=== PATIENT | male | born 1980 | race African-American/Black ===

== ENCOUNTER 2021-07-27 08:27 | Emergency (ER) | payer MEDICAID ==
[2021-07-27 09:04] LABS: BASOPHILS # (AUTO) 0.1 10^3/uL (0.0-0.1); BASOPHILS % (AUTO) 0.9 %; EOSINOPHILS # (AUTO) 0.3 10^3/uL (0.0-0.7); EOSINOPHILS % (AUTO) 3.3 %; HCT - HEMATOCRIT 44.7 % (42.0-52.0); HGB - HEMOGLOBIN 15.5 g/dL (14.0-18.0); MEAN CORPUSCULAR HEMOGLOBIN 26.6 pg (27.0-31.0); MEAN CORPUSCULAR HGB CONC 34.7 g/dL (32.0-36.0); MEAN CORPUSCULAR VOLUME 76.8 fL (80.0-94.0); MEAN PLATELET VOLUME 9.9 fL (7.4-11.4); MONOCYTES # (AUTO) 0.7 10^3/uL (0.0-1.0); MONOCYTES % (AUTO) 6.6 %; NEUTROPHILS # (AUTO) 7.2 10^3/uL (1.5-6.6); NEUTROPHILS % (AUTO) 69.9 %; PLT - PLATELET COUNT 239 10^3/uL (130-450); RED BLOOD COUNT 5.82 10^6/uL (4.70-6.10); RED CELL DISTRIBUTION WIDTH 13.5 % (12.0-15.0); WHITE BLOOD COUNT 10.3 x10^3/uL (4.8-10.8)
[2021-07-27 09:05] LABS: BILIRUBIN,URINE NEGATIVE (NEGATIVE); GLUCOSE, URINE (UA) NEGATIVE (NEGATIVE); KETONES,URINE (UA) NEGATIVE (NEGATIVE); LEUKOCYTE ESTERASE, URINE NEGATIVE (NEGATIVE); NITRITE,URINE NEGATIVE (NEGATIVE); OCCULT BLOOD,URINE NEGATIVE (NEGATIVE); PROTEIN,URINE NEGATIVE (NEGATIVE); UROBILINOGEN,URINE 0.2 (NORMAL) E.U./dL (NORMAL)
[2021-07-27 09:06] LABS: CLARITY,URINE CLEAR (CLEAR)
--- NOTE | 2021-07-27 09:13 | ED Physician Documentation ---
PD HPI ABD PAIN - Stated complaint Stated Complaint: STOMACK PX, FEVER - Chief complaint Chief Complaint: Abd Pain - History obtained from History obtained from: Patient - History of Present Illness Timing - onset: How many days ago (3) Timing - duration: Days (3) Timing - details: Gradual onset, Still present Quality: Cramping, Sharp, Pain Location: Periumbilical, Suprapubic, LLQ Improved by: Laying still Worsened by: Moving, Position, Palpation Associated symptoms: Nausea, Vomiting, Diarrhea Similar symptoms before: Has not had sx before Recently seen: Not recently seen - Additional information Additional information: Previously well 41-year-old male has developed nausea vomiting and diarrhea about 3 days ago. He has now developed severe abdominal pain in the suprapubic and periumbilical area that is worse in the left lower quadrant. He continues to have nausea he states that he feels like his stomach is just not able to settle at all. He has not had the symptoms previously has never had surgery to his abdomen he is otherwise been healthy. Patient does use cannabis regularly. He has been getting relief from a hot shower or bath Review of Systems Constitutional: reports: Fever, Myalgias Eyes: denies: Decreased vision Ears: denies: Ear pain Nose: denies: Rhinorrhea / runny nose, Congestion Throat: denies: Sore throat Cardiac: denies: Chest pain / pressure, Palpitations Respiratory: denies: Dyspnea, Cough GI: reports: Abdominal Pain, Nausea, Vomiting, Diarrhea : denies: Dysuria, Frequency Skin: denies: Rash Musculoskeletal: denies: Neck pain, Back pain, Extremity pain Neurologic: reports: Generalized weakness. denies: Focal weakness, Numbness PD PAST MEDICAL HISTORY - Past Medical History Past Medical History: No Cardiovascular: None Respiratory: None Neuro: None Endocrine/Autoimmune: None GI: None : None HEENT: None Psych: None Musculoskeletal: None Derm: None - Past Surgical History Past Surgical History: No - Present Medications Home Medications: Ambulatory Orders Medication Instructions Recorded Confirmed Ondansetron Odt [Zofran] 4 mg TL Q6H PRN #10 tablet 07/27/21 Sulfamethox/Trimeth 800/160 1 each PO BID #10 tablet 07/27/21 [Bactrim Ds] - Allergies Allergies/Adverse Reactions: Allergies Allergy/AdvReac Type Severity Reaction Status Date / Time No Known Drug Allergies Allergy Verified 07/27/21 08:38 - Social History Does the pt smoke?: No Smoking Status: Never smoker Does the pt drink ETOH?: Yes Does the pt have substance abuse?: No - Immunizations Immunizations are current?: Yes PD ED PE NORMAL - Vitals Vital signs reviewed: Yes (hypertensive ) - General General: Alert and oriented X 3, Well developed/nourished, Other (appears withdrawn ) - HEENT HEENT: Atraumatic, PERRL, EOMI, Other (dry mucous membranes) - Neck Neck: Supple, no meningeal sign, No bony TTP - Cardiac Cardiac: RRR, No murmur - Respiratory Respiratory: No respiratory distress, Clear bilaterally - Abdomen Abdomen: Normal bowel sounds, Soft, Non distended, No organomegaly, Other (mild general tenderness worse on the left no garding or rebound ) - Back Back: No CVA TTP, No spinal TTP - Derm Derm: Normal color, Warm and dry, No rash - Extremities Extremities: No deformity, No edema - Neuro Neuro: Alert and oriented X 3, registered nurse bone marrow transplant 2-12 intact, No motor deficit, No sensory deficit, Normal speech Eye Opening: Spontaneous Motor: Obeys Commands Verbal: Oriented GCS Score: 15 - Psych Psych: Normal mood, Normal affect Results - Vitals Vitals: Vital Signs - 24 hr 07/27/21 07/27/21 07/27/21 08:32 09:01 11:00 Temperature 36.6 C Heart Rate 66 54 L 55 L Respiratory 22 20 19 Rate Blood Pressure 178/108 H 189/115 H 198/98 H O2 Saturation 99 98 98 Oxygen O2 Source Room air - Labs Labs: Laboratory Tests 07/27/21 07/27/21 07/27/21 08:50 08:50 08:55 WBC 10.3 RBC 5.82 Hgb 15.5 Hct 44.7 MCV 76.8 L MCH 26.6 L MCHC 34.7 RDW 13.5 Plt Count 239 MPV 9.9 Neut # (Auto) 7.2 H Lymph # (Auto) 2.0 [place] # (Auto) 0.7 Eos # (Auto) 0.3 Baso # (Auto) 0.1 Absolute Nucleated RBC 0.00 Nucleated RBC % 0.0 Sodium 137 Potassium 3.3 L Chloride 99 L Carbon Dioxide 26 Anion Gap 12.0 BUN 11 Creatinine 1.2 Estimated GFR (MDRD) 66 L Glucose 125 H Calcium 9.3 Total Bilirubin 1.3 H AST 20 ALT 22 Alkaline Phosphatase 50 Total Protein 7.1 Albumin 4.3 Globulin 2.8 Albumin/Globulin Ratio 1.5 Lipase 33 Urine Color LT. YELLOW Urine Clarity CLEAR Urine pH 8.0 H Ur Specific [place] 1.020 Urine Protein NEGATIVE Urine Glucose (UA) NEGATIVE Urine Ketones NEGATIVE Urine Occult Blood NEGATIVE Urine Nitrite NEGATIVE Urine Bilirubin NEGATIVE Urine Urobilinogen 0.2 (NORMAL) Ur Leukocyte Esterase NEGATIVE Ur Microscopic Review NOT INDICATED Urine Culture Comments NOT INDICATED - Rads (name of study) Ct ab/pel Radiology: Prelim report reviewed (Impression: 1. Mild segmental wall thickening of the transverse descending and sigmoid colon compatible with a mild infectious or inflammatory colitis. Colonic diverticulosis without diverticulitis. ), EMP read indepedently, See rad report PD MEDICAL DECISION MAKING - ED course Complexity details: reviewed results, re-evaluated patient, considered differential, d/w patient ED course: 41-year-old male who uses cannabis regularly has developed acute abdominal pain accompanied by nausea vomiting and diarrhea. He presents to the emergency department today after 3 days of symptoms not been able to eat or drink anything and feels very dehydrated. He has uncontrolled nausea and feels he has a pain throughout his stomach that is burning and knotting in nature.He does not have prior history of cannabis hyperemesis and he does not have prior history of inflammatory bowel disease. He does think he gets some relief from a hot shower or bath. Here in the emergency department an IV is begun is given 2 mg of Haldol 25 mg of Benadryl and a liter of saline. He has some improvement in his symptoms but continues to have nausea. He is administered Zofran. After results of his CT demonstrate colitis we are placing the patient on empiric antibiotic as well.He is given a single dose of decadron in the ED. Uncertain if this is a primary presentation of cannabis hyperemesis or primarily colitis found on CT. Departure - Departure Disposition: 01 Home, Self Care Clinical Impression: Colitis Condition: Stable Instructions: ED Gastroenteritis Bacterial Follow-Up: [facility] [Provider Group] Prescriptions: Sulfamethox/Trimeth 800/160 [Bactrim Ds] 1 each PO BID #10 tablet Ondansetron Odt [Zofran] 4 mg TL Q6H PRN #10 tablet PRN Reason: Nausea / Vomiting Comments: Abdi, Today it looks like you have some "colitis" on your CT scan. This is usually inflammation or infection in the Large intestine. We have given you a dose of "emperic antibiotic" (meaning we don't know for sure what organism we are treating but we are treating with what has worked in this situation for others). We talked briefly about cannabis hyperemesis or an excessive vomiting that happens to some people with excessive cannabis use. The disorder is usually accompanied by abdominal pain and patient's frequently get relief with a warm bath or hot shower. The nausea from this can be difficult to treat and we gave you an antidote for this today. My recommendation is to refrain from cannabis now and if you have this happens to you again when you restart consider this as a possible cause.
[2021-07-27 09:18] LABS: ALBUMIN 4.3 g/dL (3.2-5.5); ALBUMIN/GLOBULIN RATIO 1.5 (1.0-2.2); BILIRUBIN,TOTAL 1.3 mg/dL (0.2-1.0); CALCIUM 9.3 mg/dL (8.5-10.3); CREATININE 1.2 mg/dL (0.6-1.2); POTASSIUM 3.3 mmol/L (3.5-5.0); TOTAL PROTEIN 7.1 g/dL (6.7-8.2)
[2021-07-27] MEDS: diphenhydrAMINE INJ 50 MG/ML VIAL IVP STA (09:47)
[2021-07-27] MEDS ORDERED: IOPAMIDOL-300 100 ML VIAL ONE (09:47)
[2021-07-27] MEDS: HALOPERIDOL 5 MG/ML VIAL IVP ONE (09:47)
[2021-07-27] MEDS: SODIUM CHLORIDE 0.9% 1,000 ML IV STA ×2 (09:47→13:19)
[2021-07-27] MEDS: MORPHINE 2 MG/ML CARPUJECT IVP STA (09:47)
[2021-07-27] MEDS: IOPAMIDOL-300 100 ML VIAL IVP ONE (10:21)
--- NOTE | 2021-07-27 10:41 | CT Report ---
PROCEDURE: Abdomen/Pelvis W INDICATIONS: suprapubic and LLQ pain CONTRAST: IV CONTRAST: Isovue 300 ml: 100 PO CONTRAST: *NO PO CONTRAST TECHNIQUE: After the administration of intravenous contrast, 5 mm thick sections acquired from the diaphragms to the symphysis. 5 mm thick coronal and sagittal reformats were acquired. For radiation dose reducti on, the following was used: automated exposure control, adjustment of mA and/or kV according to selvin ent size. COMPARISON: None. FINDINGS: Image quality: Excellent. ABDOMEN: Lung bases: There is mild dependent atelectasis in the right lower lobe. Heart size is normal. There is a small hiatal hernia. Solid organs: There is mild focal fatty infiltration in the anterior left hepatic lobe. Gallbladder appears within normal limits without calcified gallstones. Biliary system is non dilated. Pancreas e nhances normally. No adrenal nodules. Kidneys demonstrate normal size and enhancement, without hydr onephrosis. Peritoneum and bowel: Small bowel loops demonstrate normal wall thickness and caliber. The appendix i s normal in appearance. There is mild segmental wall thickening No free fluid or air. Nodes and vessels: No retroperitoneal or mesenteric adenopathy by size criteria. Aorta and inferior vena cava are normal in size of the transverse, descending, and sigmoid colon suggestive of a mild c olitis. There is colonic diverticulosis without acute diverticulitis.. Miscellaneous: No ventral hernias. PELVIS: Genitourinary: Bladder wall thickness is normal. Miscellaneous: No inguinal hernias or adenopathy. Bones: No suspicious bony lesions. No vertebral body compression fractures. IMPRESSION: 1. Mild segmental wall thickening of the transverse, descending, and sigmoid colon compatible with a mild infectious or inflammatory colitis. 2. Colonic diverticulosis without acute diverticulitis. Reviewed by: Ed Velasco MD on 07/27/2021 10:39 AM [facility] Approved by: Ed Velasco MD on 07/27/2021 10:39 AM PST Station ID: [id number]
[2021-07-27] MEDS: ONDANSETRON 4 MG/2 ML VIAL IVP STA (12:56)
[2021-07-27] MEDS: DEXAMETHASONE 10 MG/ML VIAL IVP STA (13:14)
[2021-07-27] MEDS: CIPROFLOXACIN 400 MG/200 ML 400 MG/200 ML BAG IV STA (13:18)
[2021-07-27 14:37] VITALS: BP 129/89
== END 2021-07-27 14:37 | disposition home or self-care (01) ==
LOC: ED 08:27
DX: K52.9 Noninfective gastroenteritis and colitis, unspecified (principal); K57.30 Diverticulosis of large intestine without perforation or abscess without bleeding
CPT/HCPCS: 36415; 74177; 80053; 81003; 83690; 85025; 96365; 96375; 99284; 99285; J1200; Q9967; 81001; 87086

== ENCOUNTER 2022-01-03 16:20 | Outpatient (CLI) | payer MEDICAID | END 2022-01-03 16:21 | disposition left against medical advice (07) | LOC: EMS 16:20 | DX: S91.311A Laceration without foreign body, right foot, initial encounter (principal); Y04.8XXA Assault by other bodily force, initial encounter ==

== ENCOUNTER 2022-05-12 07:11 | Emergency (ER) | payer MEDICAID ==
--- NOTE | 2022-05-12 08:06 | XRAY Report ---
PROCEDURE: Chest 1 View X-Ray INDICATIONS: cough TECHNIQUE: One view of the chest was acquired. COMPARISON: None FINDINGS: Surgical changes and devices: None. Lungs and pleura: No pleural effusions or pneumothorax. Lungs are clear. Mediastinum: Mediastinal contours appear normal. Heart size is normal. Bones and chest wall: No suspicious bony lesions. Overlying soft tissues appear unremarkable. IMPRESSION: No acute pulmonary process. Reviewed by: Ynes Solorio MD on 05/12/2022 8:04 AM PDT Approved by: Ynes Solorio MD on 05/12/2022 8:04 AM PDT Station ID: [id number]
[2022-05-12] MEDS ORDERED: ACETAMINOPHEN 500 MG TABLET PO STA (08:15)
[2022-05-12] MEDS ORDERED: KETOROLAC 30 MG/ML VIAL IVP STA (08:18)
[2022-05-12] MEDS ORDERED: SODIUM CHLORIDE 0.9% 1,000 ML IV STA (08:18)
[2022-05-12 08:43] LABS: RAPID STREP SCREEN Negative (Negative)
[2022-05-12 09:27] LABS: B. PARAPERTUSSIS- RESP PCR PAN NOT DETECTED; B. PERTUSSIS- RESP PCR PANEL NOT DETECTED; C. PNEUMONIAE- RESP PCR PANEL NOT DETECTED; CORONAVIRUS 229E-RESP PCR NOT DETECTED; CORONAVIRUS HKU1-RESP PCR NOT DETECTED; CORONAVIRUS NL63-RESP PCR NOT DETECTED; CORONAVIRUS OC43-RESP PCR NOT DETECTED; HUMAN METAPNEUMOVIRUS NOT DETECTED; INFLUENZA A- RESP PCR PANEL NOT DETECTED; INFLUENZA B - RESP PCR PANEL NOT DETECTED; M. PNEUMONIAE- RESP PCR PANEL NOT DETECTED; PARAINFLUENZA VIRUS 1 NOT DETECTED; PARAINFLUENZA VIRUS 2 NOT DETECTED; PARAINFLUENZA VIRUS 3 NOT DETECTED; PARAINFLUENZA VIRUS 4 NOT DETECTED; RHINOVIRUS/ENTEROVIRUS DETECTED; RSV- RESP PCR PANEL NOT DETECTED; SARS-CoV-2 -RESP PCR PANEL NOT DETECTED
--- NOTE | 2022-05-12 09:38 | ED Physician Documentation ---
History of Present Illness - Stated complaint Stated Complaint: SOA/ HEAD PX - Chief complaint Chief Complaint: General - History obtained from History obtained from: Patient - Additonal information Additional information: Patient is a 41-year-old male with no significant past medical history presenting for evaluation of 4 to 5 days of generalized body aches, nonproductive cough, nasal congestion, sore throat and feeling short of breath. He reports decrease in appetite but has been hydrating. He has taken 2 home COVID test which have been negative. He denies nausea and vomiting.He has had sick contacts at home. He has not taken any antipyretics today but has tried TheraFlu at home without improvement.Denies recent travel. Review of Systems Constitutional: reports: Myalgias Nose: reports: Congestion Throat: reports: Sore throat Cardiac: denies: Chest pain / pressure Respiratory: reports: Dyspnea, Cough GI: denies: Abdominal Pain Musculoskeletal: denies: Back pain Neurologic: reports: Headache PD PAST MEDICAL HISTORY - Past Medical History Cardiovascular: None Respiratory: None Neuro: None Endocrine/Autoimmune: None GI: None : None HEENT: None Psych: None Musculoskeletal: None Derm: None - Past Surgical History Past Surgical History: No - Present Medications Home Medications: Ambulatory Orders Medication Instructions Recorded Confirmed No Known Home Medications 03/31/22 03/31/22 - Allergies Allergies/Adverse Reactions: Allergies Allergy/AdvReac Type Severity Reaction Status Date / Time almond Allergy Respiratory Verified 05/12/22 07:28 lisinopril Allergy Respiratory Verified 05/12/22 07:28 - Social History Does the pt smoke?: No Smoking Status: Never smoker Does the pt drink ETOH?: Yes Does the pt have substance abuse?: No - Immunizations Immunizations are current?: Yes PD ED PE NORMAL - General General: Alert and oriented X 3, No acute distress, Well developed/nourished - HEENT HEENT: Atraumatic, PERRL, EOMI, Ears normal, Moist mucous membranes, Pharynx benign (No oral swelling, exudate or erythema) - Neck Neck: Supple, no meningeal sign, No bony TTP, C-Spine cleared by NEXUS criteria - Cardiac Cardiac: RRR, No murmur, Strong equal pulses - Respiratory Respiratory: No respiratory distress, Clear bilaterally - Abdomen Abdomen: Normal bowel sounds, Soft, Non tender, Non distended - Derm Derm: Warm and dry - Extremities Extremities: No edema - Neuro Neuro: Normal speech Results - Vitals Vitals: Vital Signs - 24 hr 05/12/22 05/12/22 07:25 09:57 Temperature 37.3 C Heart Rate 84 66 Respiratory 18 16 Rate Blood Pressure 148/101 H 150/86 H O2 Saturation 97 98 Oxygen O2 Source Room air - Labs Labs: Laboratory Tests 05/12/22 05/12/22 08:06 08:06 Nasal Adenovirus (PCR) NOT DETECTED Nasal B. parapertussis DNA (PCR) NOT DETECTED Nasal Coronavir 229E PCR NOT DETECTED Nasal Coronavir HKU1 PCR NOT DETECTED Nasal Coronavir NL63 PCR NOT DETECTED Nasal Coronavir OC43 PCR NOT DETECTED Nasal Enterovir/Rhinovir PCR DETECTED A Nasal Influenza B PCR NOT DETECTED Nasal Influenza A PCR NOT DETECTED Nasal Parainfluen 1 PCR NOT DETECTED Nasal Parainfluen 2 PCR NOT DETECTED Nasal Parainfluen 3 PCR NOT DETECTED Nasal Parainfluen 4 PCR NOT DETECTED Nasal RSV (PCR) NOT DETECTED Nasal B.pertussis DNA PCR NOT DETECTED Nasal C.pneumoniae (PCR) NOT DETECTED Johnathan Human Metapneumo PCR NOT DETECTED Nasal M.pneumoniae (PCR) NOT DETECTED Nasal SARS-CoV-2 (PCR) NOT DETECTED Group A Strep Rapid Negative PD MEDICAL DECISION MAKING - ED course Complexity details: reviewed results, re-evaluated patient ED course: ?Patient presenting with URI symptoms. Strep test is negative and chest x-ray is clear without signs of pneumonia. Overall patient's exam is reassuring with no signs of labored breathing. Does report mild headache but has no red flag signs or symptoms regarding the headache. He is feeling better with IV fluids and Toradol. Respiratory panel is positive for rhinovirus/Enterovirus. I reviewed these findings with the patient. Discussed continuing with supportive care. He is comfortable with plan for discharge. Departure - Departure Disposition: 01 Home, Self Care Clinical Impression: Upper respiratory infection, viral Condition: Stable Instructions: ED Viral Syndrome Comments: You have tested positive for enterovirus/Rhinovirus which is a Virus that can cause the common cold. Antibiotics would not be helpful. Please continue with hydration as well as rest and acetaminophen or ibuprofen as needed for fevers or body aches. You have any worsening symptoms please consider return to the emergency department. Forms: Activity restrictions Discharge Date/Time: 05/12/22 10:00
[2022-05-12 09:58] VITALS: BP 150/86
--- NOTE | 2022-05-16 12:51 | ED Physician Documentation ---
ED Addendum - Addendum Addendum: 05/16/22 12:49 The patient's throat culture came back growing group C strep. Had been discharged with rhinovirus and no antibiotics. Will prescribe penicillin VK 500 mg 4 times a day for 7 days. I transmitted it to [facility] pharmacy. I will have nursing staff notify the patient.
== END 2022-05-12 10:00 | disposition home or self-care (01) ==
LOC: ED 07:11
DX: J02.0 Streptococcal pharyngitis (principal); B95.4 Other streptococcus as the cause of diseases classified elsewhere; B34.8 Other viral infections of unspecified site; Z20.822 Contact with and (suspected) exposure to COVID-19
CPT/HCPCS: 71045; 87070; 87430; 87633; 96374; 99282; 99284; A9270

== ENCOUNTER 2022-05-17 12:51 | Emergency (ER) | payer MEDICAID ==
[2022-05-17] MEDS ORDERED: SODIUM CHLORIDE 0.9% 1,000 ML IV STA (13:10)
[2022-05-17] MEDS ORDERED: KETOROLAC 30 MG/ML VIAL IVP STA (13:10)
[2022-05-17] MEDS ORDERED: ONDANSETRON 4 MG/2 ML VIAL IVP STA ×2 (13:10→16:30)
--- NOTE | 2022-05-17 13:12 | ED Physician Documentation ---
History of Present Illness - Stated complaint Stated Complaint: DIZZY/VOMITING - Chief complaint Chief Complaint: Abd Pain - History obtained from History obtained from: Patient - History of Present Illness Timing: Today Pain level max: 6 Pain level now: 5 - Additonal information Additional information: Patient is a 41-year-old male who presents to the emergency department complaining of abdominal pain and vomiting that started today. Seen here recently and diagnosed with enterovirus/rhinovirus infection. Started vomiting today. Has vomited multiple times. Denies any drug use, alcohol use, marijuana use. Denies smoking or vaping. No diarrhea or constipation. Has diffuse abdominal cramping. Review of Systems Ten Systems: 10 systems reviewed and negative Constitutional: denies: Fever, Chills Throat: reports: Sore throat Respiratory: denies: Cough GI: reports: Abdominal Pain (Cramping, diffuse), Nausea, Vomiting, Diarrhea Skin: denies: Rash Musculoskeletal: denies: Neck pain, Back pain Neurologic: denies: Headache PD PAST MEDICAL HISTORY - Past Medical History Cardiovascular: None Respiratory: None Neuro: None Endocrine/Autoimmune: None GI: None : None HEENT: None Psych: None Musculoskeletal: None Derm: None - Past Surgical History Past Surgical History: No - Present Medications Home Medications: Ambulatory Orders Medication Instructions Recorded Confirmed Penicillin V Potassium 500 mg PO QID #28 tablet 05/16/22 Dicyclomine [Bentyl] 10 mg PO QID #30 cap 05/17/22 Ondansetron Odt [Zofran] 4 mg TL Q6H PRN #10 tablet 05/17/22 Promethazine [Phenergan] 25 mg PO Q6H PRN #10 tab 05/17/22 - Allergies Allergies/Adverse Reactions: Allergies Allergy/AdvReac Type Severity Reaction Status Date / Time almond Allergy Respiratory Verified 05/12/22 07:28 lisinopril Allergy Respiratory Verified 05/12/22 07:28 - Social History Does the pt smoke?: No Smoking Status: Never smoker Does the pt drink ETOH?: Yes Does the pt have substance abuse?: No - Immunizations Immunizations are current?: Yes PD ED PE NORMAL - Vitals Vital signs reviewed: Yes - General General: Alert and oriented X 3, No acute distress, Well developed/nourished - HEENT HEENT: Moist mucous membranes - Neck Neck: Supple, no meningeal sign - Cardiac Cardiac: RRR, Strong equal pulses - Respiratory Respiratory: No respiratory distress, Clear bilaterally - Abdomen Abdomen: Soft, Non distended, Other (Diffusely tender to palpation. No peritoneal signs) - Back Back: No CVA TTP - Derm Derm: Warm and dry, No rash - Extremities Extremities: No edema - Neuro Neuro: Alert and oriented X 3 - Psych Psych: Normal mood, Normal affect Results - Vitals Vitals: Vital Signs - 24 hr 05/17/22 05/17/22 05/17/22 12:56 13:30 14:00 Temperature 37.2 C Heart Rate 71 54 L 59 L Respiratory 20 22 19 Rate Blood Pressure 143/117 H 173/96 H 126/70 O2 Saturation 98 98 96 05/17/22 05/17/22 05/17/22 14:30 15:00 15:30 Temperature 37 C Heart Rate 67 51 L 77 Respiratory 17 18 15 Rate Blood Pressure 126/70 162/91 H 132/76 H O2 Saturation 96 98 99 05/17/22 16:13 Temperature Heart Rate 66 Respiratory 16 Rate Blood Pressure 143/74 H O2 Saturation 100 Oxygen O2 Source Room air - Labs Labs: Laboratory Tests 05/17/22 05/17/22 13:10 13:40 WBC 12.8 H RBC 6.28 H Hgb 16.3 Hct 47.5 MCV 75.6 L MCH 26.0 L MCHC 34.3 RDW 13.7 Plt Count 305 MPV 10.1 Neut # (Auto) 10.1 H Lymph # (Auto) 1.9 Carbon # (Auto) 0.6 Eos # (Auto) 0.1 Baso # (Auto) 0.1 Absolute Nucleated RBC 0.00 Nucleated RBC % 0.0 Sodium 142 Potassium 3.6 Chloride 99 L Carbon Dioxide 31 Anion Gap 12.0 BUN 9 Creatinine 1.4 H Estimated GFR (MDRD) 67 L Glucose 166 H Calcium 10.2 Total Bilirubin 0.7 AST 26 ALT 29 Alkaline Phosphatase 63 Total Protein 8.1 Albumin 5.2 Globulin 2.9 Albumin/Globulin Ratio 1.8 Lipase 42 - Rads (name of study) CT abdomen pelvis Radiology: Final report received, EMP read contemporaneously, See rad report PD MEDICAL DECISION MAKING - ED course Complexity details: reviewed old records, reviewed results, re-evaluated patient, considered differential, d/w patient ED course: Patient is well-appearing, nontoxic. Afebrile. Feels better after IV fluids, Phenergan and Zofran. He was also given a dose of Rocephin for the strep pharyngitis and a dose of dexamethasone here. Hopefully the nausea and vomiting will resolve so that he can continue on oral antibiotics tomorrow. Patient is tolerating p.o. without difficulty here. No significant lab abnormalities. Likely that this is related to the enterovirus he tested positive for 3 days ago. Patient counseled regarding signs and symptoms for which I believe and urgent re-evaluation would be necessary. Patient with good understanding of and agreement to plan and is comfortable going home at this time This document was made in part using voice recognition software. While efforts are made to proofread this document, sound alike and grammatical errors may occur. IMPRESSION: Mild appearance of thickening within the ascending and transverse colon as above. While this could be secondary to incomplete distention, very early colitis secondary to infection or inflammation cannot be definitively excluded. Departure - Departure Disposition: 01 Home, Self Care Clinical Impression: Enterovirus enteritis, Strep pharyngitis Condition: Good Instructions: ED Gastroenteritis Viral Follow-Up: your,doctor in 1 week if not better [Other] Prescriptions: Dicyclomine [Bentyl] 10 mg PO QID #30 cap Promethazine [Phenergan] 25 mg PO Q6H PRN #10 tab PRN Reason: Nausea / Vomiting Ondansetron Odt [Zofran] 4 mg TL Q6H PRN #10 tablet PRN Reason: Nausea / Vomiting Comments: Your prescriptions were sent to [facility] in [place]. Please drink plenty of fluids and rest. Please return if you worsen. This should improve over the next 24 to 48 hours.
[2022-05-17 13:24] LABS: BASOPHILS # (AUTO) 0.1 10^3/uL (0.0-0.1); BASOPHILS % (AUTO) 0.9 %; EOSINOPHILS # (AUTO) 0.1 10^3/uL (0.0-0.7); EOSINOPHILS % (AUTO) 0.5 %; HCT - HEMATOCRIT 47.5 % (42.0-52.0); HGB - HEMOGLOBIN 16.3 g/dL (14.0-18.0); LYMPHOCYTES # (AUTO) 1.9 10^3/uL (1.5-3.5); LYMPHOCYTES % (AUTO) 15.1 %; MEAN CORPUSCULAR HGB CONC 34.3 g/dL (32.0-36.0); MEAN CORPUSCULAR VOLUME 75.6 fL (80.0-94.0); MEAN PLATELET VOLUME 10.1 fL (7.4-11.4); MONOCYTES # (AUTO) 0.6 10^3/uL (0.0-1.0); MONOCYTES % (AUTO) 4.4 %; NEUTROPHILS # (AUTO) 10.1 10^3/uL (1.5-6.6); NEUTROPHILS % (AUTO) 78.8 %; PLT - PLATELET COUNT 305 10^3/uL (130-450); RED BLOOD COUNT 6.28 10^6/uL (4.70-6.10); RED CELL DISTRIBUTION WIDTH 13.7 % (12.0-15.0); WHITE BLOOD COUNT 12.8 x10^3/uL (4.8-10.8)
[2022-05-17] MEDS ORDERED: PROMETHAZINE INJ 25 MG in SODIUM CHLORIDE 0.9% 50 ML IV STA (13:44)
[2022-05-17 13:58] LABS: ALBUMIN 5.2 g/dL (3.2-5.5); ALBUMIN/GLOBULIN RATIO 1.8 (1.0-2.2); BILIRUBIN,TOTAL 0.7 mg/dL (0.2-1.0); CALCIUM 10.2 mg/dL (8.5-10.3); CREATININE 1.4 mg/dL (0.6-1.2); POTASSIUM 3.6 mmol/L (3.5-5.0); TOTAL PROTEIN 8.1 g/dL (6.7-8.2)
[2022-05-17] MEDS ORDERED: iohexoL-300 100 ML VIAL ONE (15:05)
--- NOTE | 2022-05-17 15:31 | CT Report ---
PROCEDURE: Abdomen/Pelvis W INDICATIONS: diffuse abd pain, vomiting, fever CONTRAST: IV CONTRAST: Isovue 300 ml: 100 PO CONTRAST: *NO PO CONTRAST TECHNIQUE: After the administration of IV contrast, 5 mm thick sections acquired from the diaphragms to the symp hysis. 5 mm thick coronal and sagittal reformats were acquired. For radiation dose reduction, the f ollowing was used: automated exposure control, adjustment of mA and/or kV according to patient size. COMPARISON: CT abdomen pelvis 07/27/2021 FINDINGS: Image quality: Excellent. ABDOMEN: Lung bases: Lung bases are clear. Heart size is normal. Solid organs: Liver is enlarged measuring 17.6 cm with steatosis. The spleen has normal in size and enhancement. Gallbladder is unremarkable Biliary system is non dilated. Pancreas enhances normally . No adrenal nodules. Kidneys demonstrate normal size and enhancement, without hydronephrosis. Peritoneum and bowel: Bowel loops are nonobstructed. There is a mild appearance of thickening within the descending and portions of the transverse colon. It is also incompletely distended. Nodes and vessels: No retroperitoneal or mesenteric adenopathy by size criteria. Aorta and inferior vena cava are normal in size. Miscellaneous: No ventral hernias. PELVIS: Genitourinary: Bladder wall thickness is normal. Miscellaneous: No inguinal hernias or adenopathy. Bones: No suspicious bony lesions. No vertebral body compression fractures. IMPRESSION: Mild appearance of thickening within the ascending and transverse colon as above. While this could be secondary to incomplete distention, very early colitis secondary to infection or inflammation cannot be definitively excluded. Reviewed by: Ynes Solorio MD on 05/17/2022 3:30 PM PDT Approved by: Ynes Solorio MD on 05/17/2022 3:30 PM PDT Station ID: [id number]
[2022-05-17] MEDS ORDERED: DEXAMETHASONE 10 MG/ML VIAL PO STA (15:47)
[2022-05-17] MEDS ORDERED: cefTRIAXone 1 GM VIAL IVP STA (15:47)
[2022-05-17] MEDS ORDERED: CHERRY SYRUP 10 ML UDC PO ONE (16:09)
[2022-05-17 16:14] VITALS: BP 143/74
[2022-05-17] MEDS ORDERED: iohexoL-300 100 ML VIAL IVP ONE (18:28)
== END 2022-05-17 16:53 | disposition home or self-care (01) ==
LOC: ED 12:51
DX: J02.0 Streptococcal pharyngitis (principal); A08.39 Other viral enteritis
CPT/HCPCS: 36415; 74177; 80053; 83690; 85025; 96361; 96365; 96375; 96376; 99284; A9270; J7040; Q9967

== ENCOUNTER 2022-09-02 07:32 | Day surgery (SDC) | payer MEDICAID ==
[2022-09-02] MEDS ORDERED: LACTATED RINGERS 1,000 ML IV ONE ×2 (07:35→09:55)
[2022-09-02] MEDS ORDERED: LIDOCAINE-MPF 2% 5 ML VIAL ONE (08:20)
[2022-09-02] MEDS ORDERED: PROPOFOL 500 MG/50 ML 500 MG/50 ML VIAL ONE (08:20)
--- NOTE | 2022-09-02 08:26 | ANESTHESIA ---
Pre-Anesthesia VS, & Labs - Diagnosis vomiting, weight loss, colon inflammation on CT - Procedure colonoscopy, EGD Vital Signs: Temp Pulse Resp BP Pulse Ox O2 Flow Rate 36.3 C L 61 16 137/93 H 100 0 09/02/22 07:45 09/02/22 07:45 09/02/22 07:45 09/02/22 07:45 09/02/22 07:45 09/02/22 07:45 Height: 5 ft 9 in Weight (kg): 72 kg Body Mass Index: 23.4 BMI Classification: Normal - NPO Other (prep as directed) Home Medications and Allergies Allergies/Adverse Reactions: Allergies Allergy/AdvReac Type Severity Reaction Status Date / Time almond Allergy Respiratory Verified 09/02/22 08:01 lisinopril Allergy Respiratory Verified 09/02/22 08:01 Anes History & Medical History - Anesthetic History Anesthesia Complications: reports: No previous complications - Medical History Cardiovascular: reports: None Pulmonary: reports: None Gastrointestinal: reports: None Urinary: reports: None Neuro: reports: None Musculoskeletal: reports: None Endocrine/Autoimmune: reports: None Blood Disorders: reports: None Skin: reports: None Smoking Status: Never smoker History of Cancer?: No Exam General: Alert, Oriented x3, Cooperative Dental: Poor dentition Mouth Opening: Greater than 4 Fingerbreadths Neck Mobility: Normal Mallampati classification: III Thyromental Distance: greater than 6 cm Respiratory: Lungs clear Cardiovascular: Regular rate Plan Anesthesia Type: Total IV Consent for Procedure(s) Verified and Reviewed: Yes Code Status: Attempt Resuscitation ASA classification: 2-Mild systemic disease Is this case an emergency?: No
[2022-09-02] MEDS ORDERED: PROPOFOL 200 MG/20 ML VIAL IVP ONE ×2 (09:29→09:52)
[2022-09-02 10:18] VITALS: BP 153/84
--- NOTE | 2022-09-02 11:39 | ANESTHESIA POST OP EVALUATION ---
Anesthesia Post Eval - Post Anesthesia Eval Vitals: Last Vital Signs Temp 36.1 C L 09/02/22 10:18 Pulse 64 09/02/22 10:18 Resp 16 09/02/22 10:18 BP 153/84 H 09/02/22 10:18 Pulse Ox 100 09/02/22 10:18 O2 Flow Rate 0 09/02/22 07:45 CV Function Including HR & BP: Stable Pain Control: Satisfactory Nausea & Vomiting: Negative Mental Status: Baseline Respiratory Status: Airway Patent Hydration Status: Satisfactory Anesthesia Complications: None
== END 2022-09-02 07:33 | disposition home or self-care (01) ==
LOC: SDS 07:32
PROVIDERS: ATTEND Surgery
PROC: 0DBG8ZX Excision of Left Large Intestine, Via Natural or Artificial Opening Endoscopic, Diagnostic (ICD-10-PCS; 2022-09-02)
PROC: 0DBF8ZX Excision of Right Large Intestine, Via Natural or Artificial Opening Endoscopic, Diagnostic (ICD-10-PCS; 2022-09-02)
PROC: 0DB98ZX Excision of Duodenum, Via Natural or Artificial Opening Endoscopic, Diagnostic (ICD-10-PCS; principal; 2022-09-02 07:30)
PROC: 0DB78ZX Excision of Stomach, Pylorus, Via Natural or Artificial Opening Endoscopic, Diagnostic (ICD-10-PCS; 2022-09-02 07:30)
DX: R63.4 Abnormal weight loss (principal); R93.5 Abnormal findings on diagnostic imaging of other abdominal regions, including retroperitoneum; K29.50 Unspecified chronic gastritis without bleeding; R19.4 Change in bowel habit; R19.5 Other fecal abnormalities; Z68.23 Body mass index [BMI] 23.0-23.9, adult
CPT/HCPCS: 43239; 45380; J7120